=== PATIENT | male | born 1985 | race Caucasian/White ===

== ENCOUNTER → 2017-06-17 | Outpatient (CLI) | payer OTHER ==
--- NOTE | 2017-06-17 19:25 | REP ---
MRI LEFT FIRST DIGIT WITH AND WITHOUT CONTRAST: HISTORY: Nodule. Multiple sequences obtained prior to and following the intravenous administration of 19 mL of gadolinium. Along the medial margin of the first proximal phalanx is an oval soft tissue nodule. The adjacent proximal phalanx bone demonstrates no abnormal signal or enhancement. The nodule demonstrates heterogeneous increased signal on T1-weighted images and diffuse low signal on STIR and T1 FS images. Given these signal characteristics, the lesion appears to contain fat. There is thin peripheral rim enhancement of the lesion. The lesion measures 1.2 x 1.4 x 0.8 cm. The tendons and ligaments of the first digit appear intact. IMPRESSION: Soft tissue nodule along the medial margin of the first proximal phalanx appears to contain fat and is solid. There is mild peripheral rim enhancement. A benign solid fat containing nodule is favored over malignancy. Biopsy or surgical removal recommended. Signed by Gustavo Craig MD 06/17/2017 07:39 P
== END ==
LOC: M RAD 17:54
PROVIDERS: ATTEND Orthopaedic Surgery
DX: R22.32 Localized swelling, mass and lump, left upper limb (principal)

== ENCOUNTER → 2020-01-23 | Outpatient (REF) | payer BC ==
[2020-01-23 16:43] LABS: ALBUMIN 4.4 GM/DL (3.2-5.2); ALT/SGPT 33 U/L (12-78); BILIRUBIN,DIRECT < 0.1 MG/DL (0.0-0.2); BILIRUBIN,TOTAL 0.4 MG/DL (0.2-1.0); TOTAL PROTEIN 7.2 GM/DL (6.4-8.2)
== END ==
LOC: M SFHCDERM 12:00
PROVIDERS: ATTEND Dermatology
DX: B35.1 Tinea unguium (principal)

== ENCOUNTER → 2024-08-22 | Outpatient (CLI) | payer BC | LOC: M PLAIMG 07:05 | PROVIDERS: ATTEND Orthopaedic Surgery Hand Surgery | DX: M25.561 Pain in right knee (principal) ==